=== PATIENT | female | born 1965 | race Two or more races ===

== ENCOUNTER 2024-07-18 08:10 | Emergency (ER) | payer OTHER ==
[~2024-07-18] VITALS: Ht 172.7 cm; Wt 92.5 kg
[2024-07-18 08:33] VITALS: BP 156/96; PULSE 84; RESP 16; TEMP 97.7; O2SAT 98
[2024-07-18] MEDS ORDERED: CEPH500C PO (08:52)
[2024-07-18] MEDS: LIDOCAINE 1% HCL (LOCAL ANESTH.) INJ 20ML MDV IJ ONE (08:56)
== END 2024-07-18 09:05 | disposition home or self-care (01) ==
LOC: ER 08:10
DX: S61.211A Laceration without foreign body of left index finger without damage to nail, initial encounter (principal); E78.5 Hyperlipidemia, unspecified; Z90.710 Acquired absence of both cervix and uterus; Z88.1 Allergy status to other antibiotic agents; Z88.2 Allergy status to sulfonamides; Z79.899 Other long term (current) drug therapy; W45.8XXA Other foreign body or object entering through skin, initial encounter; Y93.89 Activity, other specified; Y92.89 Other specified places as the place of occurrence of the external cause; Y99.8 Other external cause status
CPT/HCPCS: 12001; 99283; J2003